=== PATIENT | female | born 1955 | race Caucasian/White ===

== ENCOUNTER 2022-01-14 20:02 | Inpatient (IN) | payer MEDICARE, OTHER ==
[~2022-01-14] VITALS: Ht 157.5 cm; Wt 83.5 kg
--- NOTE | 2022-01-14 21:18 | NUR ---
patient has been medically cleared by Dr Adame
--- NOTE | 2022-01-14 21:53 | NUR ---
Report given to Roma HOWARD.
--- NOTE | 2022-01-14 22:11 | NUR ---
Pt. admitted to MHU , under care of . Belongs List completed. Mar HOWARD aware of pts arrival.
[2022-01-14] MEDS ORDERED: MAG HYDROX/AL HYDROX/SIMETH 30 ML LIQUID UDC PO PRN (22:30)
[2022-01-14] MEDS ORDERED: BLOOD SUGAR DIAGNOSTIC 1 EACH STRIP VI ONE (22:30)
[2022-01-14] MEDS ORDERED: MAGNESIUM HYDROXIDE 30 ML LIQUID UDC PO PRN (22:30)
[2022-01-14] MEDS ORDERED: ACETAMINOPHEN 325 MG TABLET PO PRN (22:30)
[2022-01-14] MEDS ORDERED: ZOLPIDEM 5 MG TABLET PO PRN (22:30)
[2022-01-14 22:54] VITALS: BP 160/99
--- NOTE | 2022-01-14 23:45 | NUR ---
Admitted at approx 2210 A 66 years old female from [facility] ER to the MHU on a 5150 for GD. Pt was placed on a 5150 by [facility] behavioral health director. Per hold, patient has a long history of schizophrenia and has not been compliant with her medications for several months. Upon admission, patient was noted A/O x 3 able to ambulate with steady gait. Patient is easily irritable, hostile and angry. she has poor insight and judgment into her admission to MHU. She denied SI/HI/AH/VH. she refused to sign any admission papers and her skin assessment was limited d/t poor compliant. Per medical records, patient has a fracture of her right wrist. She denied pain at this time. Patient was advised of her hold and her advisement was given as well as her booklet of patient's rights in mental health facilities. patient was checked for contraband, all her belongings were inventoried and secured. she was informed of unit rules room and roommate. She is under the care of Dr. Ponce and Codie, GIORGIO. will continue with Q15 min checks.
--- NOTE | 2022-01-15 06:45 | NUR ---
Patient slept for approx. 5.30 hrs through the night. She was noted with tangental speech but less hostile less angry. Will endorse accordingly.
[2022-01-15 07:36] VITALS: BP 144/78
[2022-01-15] MEDS: risperiDONE 0.5 MG TABLET PO SCH ×2 (09:01→20:30)
--- NOTE | 2022-01-15 15:17 | NUR ---
Received patient awake in her room. A/O X 3 to person, place. Patient is cooperative with nursing care, compliant with medications, following directions, anxious at times, suspicious. Requires minimal assistance with ADL. Patient is encourage to verbalize concerns. Fall and safety precautions implemented.
[2022-01-15 16:00] VITALS: BP 146/64
[2022-01-15 20:37] VITALS: BP 146/68
--- NOTE | 2022-01-15 21:00 | NUR ---
RECEIVED PATIENT IN THE DAY ROOM. SHE IS NOTED A/O X3. SHE IS CALM AND PLEASANT UPON APPROACHED. SHE IS HYPERVERBAL AND APPEARS TO MINIMIZED HER CONDITION. SHE IS LESS INTRUSIVE AND LESS OPINIONATED. SHE WAS ABLE TO COMPLY WITH HER MEDICATION REGIMENT. HER V/S ARE STABLE. SHE WAS GIVEN PO FLUIDS AND SNACKS. SHE IS REASSURED FOR HER SAFETY. SAFETY AND FALL PRECAUTIONS ARE IN PLACE. WILL CONTINUE TO MONITOR.
[2022-01-16 07:35] VITALS: BP 151/69
[2022-01-16] MEDS: risperiDONE 1 MG TABLET PO SCH ×2 (08:31→20:12)
[2022-01-16] MEDS ORDERED: risperiDONE 0.5 MG TABLET PO SCH (09:00)
[2022-01-16 16:56] VITALS: BP 140/67
[2022-01-16 19:45] VITALS: BP 140/66
[2022-01-16] MEDS: LORAZEPAM 1 MG TABLET PO PRN ×2 (20:12→20:18)
--- NOTE | 2022-01-17 05:02 | NUR ---
Received patient in the falcon. Angry, paranoid and verbally abusive to this lyric writer. The patient made delusional statements and non reality based comments. Resistance was shown when it was time to take her PM medications. Sleep pattern is poor. The patient has a combative , threatening and aggressive demeanor. Poor verbal impulse control. Safety Stratiges are in place and limits have been set, with this patient, when it came to the frequent requests and demands. Continuing to monitor for behavior escalation and medication compliance.
[2022-01-17 07:44] VITALS: BP 152/69
[2022-01-17] MEDS: risperiDONE 1 MG TABLET PO SCH ×2 (08:10→20:18)
[2022-01-17 16:29] VITALS: BP 146/70
--- NOTE | 2022-01-17 16:39 | NUR ---
Received patient is alert and oriented x3, easily to get irritable when approach, suspicious argumentative when weapons designer psychiatrist attempted to talk to her.compliant with schedule medication . refused to attend in group activity delusional and paranoia, enjoyed drawing in her room no interaction with other peers.
[2022-01-17] MEDS: LORAZEPAM 1 MG TABLET PO PRN (20:22)
--- NOTE | 2022-01-17 20:23 | NUR ---
Patients paranoid this PM. The patient asked for Ativan, but refused the medication when presented to her. The medication had to be wasted. Same thing happened during previous bingo manager. Education and encouragement provided . The patient is argumentative, suspious and hostile. Safety Stratiges are in place. Monitoring for behavior escalation and compliance.
[2022-01-18 07:54] VITALS: BP 146/63
[2022-01-18] MEDS: risperiDONE 1 MG TABLET PO SCH ×2 (08:42→20:57)
[2022-01-18 16:03] VITALS: BP 146/68
[2022-01-18 20:18] VITALS: BP 133/75
--- NOTE | 2022-01-18 20:30 | NUR ---
RECEIVED PATIENT IN HER ROOM. SHE IS NOTED A/O X3. SHE IS CALM AND PLEASANT UPON APPROACHED. SHE IS ABLE TO VERBALIZED HER FEELING. HER V/S ARE STABLE. SHE WAS GIVEN PO FLUIDS AND SNACKS. SHE IS REASSURED FOR HER SAFETY. SAFETY AND FALL PRECAUTIONS ARE IN PLACE. WILL CONTINUE TO MONITOR.
[2022-01-19 08:08] VITALS: BP 138/79
[2022-01-19] MEDS: risperiDONE 1 MG TABLET PO SCH ×3 (08:41→21:03)
[2022-01-19] MEDS ORDERED: risperiDONE 1 MG TABLET PO SCH (09:00)
--- NOTE | 2022-01-19 10:09 | NUR ---
SAMMI Initial Discharge Note: Per SW completing pt assessment, patient is currently homeless. Patient receives services from [facility]. The director employee communications Pedro ([phone]) stated that she is working on placement at [facility]. Pedro ([phone]) stated she will be on contact regarding placement for the pt. SAMMI will continue to work with patient, family, and MD to ensure a safe and proper discharge plan.
--- NOTE | 2022-01-19 10:14 | NUR ---
Firearms Report: Sales Service Promoter completed and submitted a [employer] firearms report for 5150 grave disability certifications. A copy of report has been placed in patient chart.
--- NOTE | 2022-01-19 13:17 | NUR ---
Treatment Plan Patient refused to sign treatment plan due to disorganized thought process.
--- NOTE | 2022-01-19 15:00 | NUR ---
Received patient is alert and oriented x3, easily to get irritable when approach, hyperverbal suspicious ,compliant with schedule medication . refused to attend in group activity delusional and paranoia, will continue close monitoring.
[2022-01-19 16:11] VITALS: BP 130/68
[2022-01-19 21:25] VITALS: BP 149/72
--- NOTE | 2022-01-20 01:41 | NUR ---
RECEIVED PATIENT IN HER ROOM. SHE IS NOTED A/O X3. SHE IS CALM AND PLEASANT UPON APPROACHED. SHE IS NOTED SOMEWHAT INTRUSIVE AND ATTENTIONS SEEKER. SHE IS REDIRECTABLE AND ABLE TO VERBALIZED HER FEELING. HER V/S ARE STABLE. SHE WAS GIVEN PO FLUIDS AND SNACKS. SHE IS REASSURED FOR HER SAFETY. SAFETY AND FALL PRECAUTIONS ARE IN PLACE. WILL CONTINUE TO MONITOR.
[2022-01-20 07:30] VITALS: BP 154/73
[2022-01-20] MEDS: risperiDONE 1 MG TABLET PO SCH ×3 (08:34→20:47)
[2022-01-20] MEDS: LISINOPRIL 5 MG TABLET PO SCH (15:24)
--- NOTE | 2022-01-20 15:27 | NUR ---
Patient had a court hearing today, and the radiology ct technologist granted probable cause 14 day for GD only.
--- NOTE | 2022-01-20 15:45 | NUR ---
Received patient awake in the hallway. A/O X 3 to person, place, environment. Patient is cooperative with nursing care, pleasant, intrusive, irritable and anxious at times. Requires minimal assistance with ADL. Emotional support provided. Fall and safety precautions implemented.
[2022-01-20 15:56] VITALS: BP 167/87
--- NOTE | 2022-01-20 16:36 | NUR ---
SW Discharge Update: SW received call from Real Estate Lawyer Jesús Blanchard ([phone]) informing they have found placement at [facility] level 5 facility. Jesús explained pt needs temporary conservatorship in order to be placed at [facility] due to pt flight risk. Jesús faxed clinical notes for MD to review to consider signing affidavit for TCON.
[2022-01-20] MEDS: METFORMIN HCL 500 MG TABLET PO SCH (17:39)
[2022-01-20 20:02] VITALS: BP 133/68
--- NOTE | 2022-01-20 21:16 | NUR ---
GPS: Pt.is less paranoid and suspicious tonight. Med.compliant. Re-assured prn. No increased agitation noted. Safety emphasized. Will continue to monitor.
--- NOTE | 2022-01-21 06:18 | NUR ---
GPS: Pt.slept poorly last night (2.15). Refused sleeping pill when offered despite explanation of risks vs. benefits x3. Paranoid and accusing staff earlier of trying to hide her hat. Found hat under her bed. Re-directed prn. Safety emphasized.
[2022-01-21 07:30] VITALS: BP 117/54
[2022-01-21 08:05] LABS: HEMATOCRIT 36.4 % (31.2-41.9); MEAN CORPUSCULAR HEMOGLOBIN 28.5 uug (24.7-32.8); MEAN CORPUSCULAR VOLUME 86.1 fL (75.5-95.3); PLATELET COUNT (AUTO) 386 K/uL (179-408)
[2022-01-21 08:27] LABS: BILIRUBIN,TOTAL 0.4 mg/dL (0.2-1.0); CREATININE 0.7 mg/dL (0.6-1.3); POTASSIUM 4.1 mmol/L (3.5-5.1); TOTAL PROTEIN, SERUM 7.2 g/dL (6.4-8.2)
[2022-01-21] MEDS: METFORMIN HCL 500 MG TABLET PO SCH ×2 (08:51→17:29)
[2022-01-21] MEDS: risperiDONE 1 MG TABLET PO SCH ×3 (08:51→20:17)
[2022-01-21] MEDS: LISINOPRIL 5 MG TABLET PO SCH (08:51)
--- NOTE | 2022-01-21 14:41 | NUR ---
Received patient awake in the hallway. Patient is A/O X 3 to person, place. Patient is cooperative, intrusive about other patient's situation, labile, irritable at times. Patient spends time drawing and making Ras cards for all the staff. Patient is encourage to verbalize concerns. Fall and safety precautions implemented.
[2022-01-21 20:09] VITALS: BP 117/64
--- NOTE | 2022-01-22 02:41 | NUR ---
Received patient in the hallway standing by the wall with her back against the wall, belongings in hand. This blurb writer asked the patient for the reason as to why she had her belongings out with her in which the patient stated, "People are taking my stuff, so I have to watch it.". Patient is paranoid, anxious, and is reluctant to continue on her medication. When asked for the reasoning, patient stated, "I don't trust anyone here". 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 This blurb writer provided reassurance and active listening while at the same time, monitoring for behavior escalation. The patient can be intrusive with her physical presents and listens to conversations happening in the unit in regards to other patients. Safety strategies remain in place. Continuing to monitor for medication compliance and possible labile outbursts.
[2022-01-22 07:42] VITALS: BP_SYST 132; BP_SYST 143; BP_DIAS 66; BP_DIAS 80
[2022-01-22] MEDS: risperiDONE 1 MG TABLET PO SCH ×3 (09:27→20:49)
[2022-01-22] MEDS: LISINOPRIL 5 MG TABLET PO SCH (09:27)
[2022-01-22] MEDS: METFORMIN HCL 500 MG TABLET PO SCH ×2 (09:30→17:37)
--- NOTE | 2022-01-22 10:08 | NUR ---
SW Discharge Update: SW received call from College Archivist Jesús Blanchard (Desk: [phone]) and C: ([phone]) from [facility]. Jesús asked if Dr. Ponce can place the pt on TCON. This speech writer informed Jesús that per Dr. Ponce, he does not feel that the pt needs a TCON. Per Jesús, Dr. Ponce had already said "no" and she was checking if the answer still remains "no". Jesús was understanding and stated that the pt does not have a safe place for discharge without a TCON in [facility]. Jesús was agreeable for Dr. Ponce to make recommendations for a fpc facility in our community and also for Dr. Ponce to continue care for the pt if possible.
[2022-01-22 17:07] VITALS: BP 131/74
[2022-01-22 19:56] VITALS: BP 128/81
[2022-01-23 07:44] VITALS: BP 150/56
[2022-01-23] MEDS: risperiDONE 2 MG TABLET PO SCH ×2 (08:11→17:02)
[2022-01-23] MEDS ORDERED: OLANZAPINE 10 MG VIAL IM ONE (08:15)
[2022-01-23] MEDS ORDERED: risperiDONE 1 MG TABLET PO SCH (08:15)
--- NOTE | 2022-01-23 08:15 | NUR ---
Received zyprexa 10 mg IM order from psychiatrist , Im given to patient .
[2022-01-23] MEDS: METFORMIN HCL 500 MG TABLET PO SCH ×2 (08:53→17:02)
[2022-01-23] MEDS: LISINOPRIL 5 MG TABLET PO SCH (08:54)
[2022-01-23] MEDS ORDERED: PALIPERIDONE PALMITATE 234 MG/1.5 ML SYRINGE IM ONE (10:00)
[2022-01-23 17:01] VITALS: BP 154/64
--- NOTE | 2022-01-23 17:44 | NUR ---
patient is AAO x3, cooperative and quiet stay in TV room drawing and coloring , compliant with all medication,Invega IM given as ordered, patient well tolerated . denies any SI/HI will continue close monitoring.
[2022-01-23 19:58] VITALS: BP 122/68
--- NOTE | 2022-01-23 20:19 | NUR ---
GPS: Remains paranoid and suspicious. Evasive when questioned and easily irritable when approached by staff. Re-directed and re-assured prn. Safe environment provided. Will continue to monitor.
[2022-01-24 07:35] VITALS: BP 132/58
[2022-01-24] MEDS: METFORMIN HCL 500 MG TABLET PO SCH ×2 (08:08→17:03)
[2022-01-24] MEDS: risperiDONE 2 MG TABLET PO SCH ×2 (08:08→16:21)
[2022-01-24] MEDS: LISINOPRIL 5 MG TABLET PO SCH (08:09)
[2022-01-24] MEDS: GLUCERNA SHAKE 237 ML CAN PO SCH ×2 (13:10→17:03)
--- NOTE | 2022-01-24 15:14 | NUR ---
Received patient awake in the hallway. Patient is cooperative, fixated on Ras cards, sociable, compliant with medications, suspicious at times, intrusive about staff's interactions and conversations. Requires minimal assistance with ADL. Emotional support provided. Fall and safety precautions implemented.
[2022-01-24 16:03] VITALS: BP 129/62
[2022-01-24 19:45] VITALS: BP 129/74
--- NOTE | 2022-01-25 06:10 | NUR ---
Patient slept 5.30 hours, up and down frequently during the shift. The patient is suspious and paranoid. She carries most of her belongings around the unit with her in fear of the items getting stolen. Often times the patient will be standing in the falcon with her back against the wall, just listening to peoples conversations and internally preoccupied at times. No behavior escalation noted and she appears less angry than in prior shifts. Safety Stratiges are in place.
[2022-01-25 07:57] VITALS: BP 142/60
[2022-01-25] MEDS: METFORMIN HCL 500 MG TABLET PO SCH ×2 (08:28→16:28)
[2022-01-25] MEDS: risperiDONE 2 MG TABLET PO SCH ×2 (08:29→16:28)
[2022-01-25] MEDS: LISINOPRIL 5 MG TABLET PO SCH (08:33)
[2022-01-25] MEDS: GLUCERNA SHAKE 237 ML CAN PO SCH ×2 (08:34→16:29)
--- NOTE | 2022-01-25 15:16 | NUR ---
Received patient is alert and oriented x3, easily to get irritable when approach, guarded ,compliant with schedule medication . refused to attend in group activity delusional and paranoia, will continue close monitoring.
[2022-01-25 15:31] VITALS: BP 121/72
[2022-01-25 20:01] VITALS: BP 100/50
--- NOTE | 2022-01-26 04:39 | NUR ---
Patient is less intrusive and more compliant with POC than previous shift of this nurse/author. Will continue to monitor.
[2022-01-26 08:17] VITALS: BP 120/59
[2022-01-26] MEDS: METFORMIN HCL 500 MG TABLET PO SCH ×2 (08:36→17:52)
[2022-01-26] MEDS: risperiDONE 2 MG TABLET PO SCH ×2 (08:36→17:52)
[2022-01-26] MEDS: LISINOPRIL 5 MG TABLET PO SCH (08:37)
[2022-01-26] MEDS: GLUCERNA SHAKE 237 ML CAN PO SCH ×2 (08:48→17:53)
--- NOTE | 2022-01-26 14:54 | NUR ---
SAMMI Discharge Update: SAMMI received a voicemail from Meat Grinder Jesús Blanchard (Desk: [phone]) and C: ([phone]) from [facility] stating that she did not receive an email back from this casualty underwriter. SAMMI called Jesús today and left a voicemail stating that this casualty underwriter returned her email and asked for her fax number to fax the clinicals requested by Jesús. SAMMI also informed Jesús that this casualty underwriter answered her questions in the email as well. This casualty underwriter will contact Jesús again to follow-up.
--- NOTE | 2022-01-26 15:57 | NUR ---
SNF Referral: Flat Folder faxed patient's referral packet including: History and Physical, Consultation, Progress Notes, Medication List and Labs to the following facilities for review and possible senior living placement: Brianna Malave [facility] [address] [address] ([phone]) F: [phone].
[2022-01-26 16:01] VITALS: BP 111/62
[2022-01-26 19:35] VITALS: BP 115/55
--- NOTE | 2022-01-27 06:26 | NUR ---
GPS: Remain calm and cooperative with care. no agitation noted. resting in bed comfortably. slept 5.30 hrs through the night.. continue plan of care.
[2022-01-27 07:38] VITALS: BP 144/66
[2022-01-27] MEDS: risperiDONE 2 MG TABLET PO SCH ×2 (08:34→16:55)
[2022-01-27] MEDS: LISINOPRIL 5 MG TABLET PO SCH (08:34)
[2022-01-27] MEDS: GLUCERNA SHAKE 237 ML CAN PO SCH ×2 (08:35→16:57)
[2022-01-27] MEDS: METFORMIN HCL 500 MG TABLET PO SCH ×2 (08:35→17:00)
--- NOTE | 2022-01-27 11:18 | NUR ---
Clinical SW Note: Pt stated to this SW to not contact pt's or any family member. Pt asked to address all questions and concerns directly with the pt.
--- NOTE | 2022-01-27 15:42 | NUR ---
Received patient sleeping in her room. A/O X 2 to person, place. Patient is cooperative, needy, sociable, loose associations, compliant with medications. Requires minimal assistance with ADL. Patient is encourage to verbalize concerns. Fall and safety precautions implemented.
[2022-01-27 16:35] VITALS: BP 141/77
[2022-01-27 19:51] VITALS: BP 146/72
--- NOTE | 2022-01-28 06:10 | NUR ---
GPS: Remain calm and cooperative with care. no agitation noted. resting in bed comfortably. slept 4.30 hrs through the night.. continue plan of care.
[2022-01-28 07:45] VITALS: BP 133/60
[2022-01-28] MEDS: METFORMIN HCL 500 MG TABLET PO SCH ×2 (08:31→17:00)
[2022-01-28] MEDS: LISINOPRIL 5 MG TABLET PO SCH (08:31)
[2022-01-28] MEDS: risperiDONE 2 MG TABLET PO SCH ×2 (08:31→16:56)
[2022-01-28] MEDS: GLUCERNA SHAKE 237 ML CAN PO SCH ×2 (08:32→16:56)
--- NOTE | 2022-01-28 12:13 | NUR ---
SNF Referral: SW faxed patient's referral packet including: History and Physical, Consultation, Progress Notes, Medication List and Labs to the following facilities for review and possible long-term placement: [facility] [address] [address] ([phone]) F: ([phone]). SAMMI spoke with Priscilla in admissions.
--- NOTE | 2022-01-28 12:22 | NUR ---
Clinical SW Note: SW faxed patient's referral packet including: History and Physical, Consultation, Progress Notes, Medication List and Labs to the following facilities for review and possible shelter placement: Génesis Espinosa from [facility] per request P: [phone] F:[phone].
--- NOTE | 2022-01-28 15:20 | NUR ---
Patient is pleasant, friendly, cooperative with nursing care, compliant with medications, fixated on making Ras cards, paranoid about people stealing her hat. Patient is encourage to verbalize concerns. Fall and safety precautions.
[2022-01-28 16:04] VITALS: BP 139/70
[2022-01-28 20:22] VITALS: BP 104/51
--- NOTE | 2022-01-28 21:01 | NUR ---
GPS: Continues to be paranoid but re-directable. No increased agitation noted. Poor insight to her mental illness. Re-assured prn. Safety emphasized.
[2022-01-29 07:30] VITALS: BP 124/80
[2022-01-29] MEDS: METFORMIN HCL 500 MG TABLET PO SCH ×2 (08:16→17:00)
[2022-01-29] MEDS: LISINOPRIL 5 MG TABLET PO SCH (08:17)
[2022-01-29] MEDS: risperiDONE 2 MG TABLET PO SCH ×2 (08:18→16:59)
[2022-01-29] MEDS: GLUCERNA SHAKE 237 ML CAN PO SCH ×2 (08:18→16:59)
[2022-01-29] MEDS ORDERED: PALIPERIDONE PALMITATE 156 MG/ML SYRINGE IM ONE (14:00)
--- NOTE | 2022-01-29 14:22 | NUR ---
Clinical SW Note: SW contacted Newspaper Stuffer Jesús Blanchard (Desk: [phone]) and C: ([phone]) from [facility] and left a voicemail stating pt's discharge details for 01/30/[address] [facility] and provided contact information. SW will follow-up again on 01/30/22.
--- NOTE | 2022-01-29 15:04 | NUR ---
Received patient sleeping in her room. Patient is A/O X 3 to person, place. Patient is cooperative, compliant with medications, playful, sociable, suspicious and paranoid with some staff. Requires minimal assistance with ADL. Patient is given Invega 156 mg IM as scheduled, next dose due on February 24. Patient is excited to get discharged to SNF tomorrow. Patient is encourage to verbalize concerns. Fall and safety precautions implemented.
[2022-01-29 16:00] VITALS: BP 131/53
[2022-01-29 20:14] VITALS: BP 123/57
--- NOTE | 2022-01-29 20:50 | NUR ---
GPS: Pt.is less paranoid and suspicious tonight. Aware of her planned discharge tomorrow and is looking forward to it. Re-assured prn. No aggressive behavior noted.
[2022-01-30 07:30] VITALS: BP 119/61
[2022-01-30 08:46] VITALS: BP 119/61
[2022-01-30] MEDS: METFORMIN HCL 500 MG TABLET PO SCH (08:46)
[2022-01-30] MEDS: LISINOPRIL 5 MG TABLET PO SCH (08:46)
[2022-01-30] MEDS: risperiDONE 2 MG TABLET PO SCH (08:46)
[2022-01-30] MEDS: GLUCERNA SHAKE 237 ML CAN PO SCH (08:47)
--- NOTE | 2022-01-30 10:24 | NUR ---
SAMMI Discharge Note: Pt will be discharged to [facility] [address] [place] [address] ([phone]) via Ambulance transportation at 11AM. SAMMI spoke with admin, Priscilla at the facility who stated they are ready to accept the pt today. Pt is aware and agreeable with discharge plan. SAMMI contacted Pot Fireman Jesús Blanchard (Desk: [phone]) and C: ([phone]) from [facility] and left a voicemail stating pt's discharge details for 01/30/22. Pt is alert and oriented x4, is unable to plan for self-care at this time. Pt refused for this travel writer to contact any family. However, pt is willing to accept care at SNF. Pt denies any suicidal or homicidal ideation. Pt will follow-up at the facility with Psychiatrist, Dr. Purdy and Propulsion Machinery Service Engineer, Dr. Sneed. Pt presents with calm mood and congruent affect. PHARMACY: [facility] ([phone]) [address] [address].
--- NOTE | 2022-01-30 11:10 | NUR ---
Discharged to [facility] via Ambulance transportation at 11AM. Pt is alert and oriented x4, is unable to plan for self-care at this time. Pt refused for this machine sign writer to contact any family. However, pt is willing to accept care at SNF. Pt denies any suicidal or homicidal ideation. Pt will follow-up at the facility with Psychiatrist, Dr. Purdy and Airport Utility Worker, Dr. Sneed. all person belonging reeturned to patient,report given to Jamar HOWARD.
[2022-02-26] MEDS ORDERED: PALIPERIDONE PALMITATE 117 MG/0.75 ML SYRINGE IM ONE (09:00)
== END 2022-01-30 11:10 | DRG 885 ==
LOC: ER 20:08 → GPS 21:57
PROVIDERS: ADMIT Psychiatry & Neurology Psychiatry; ATTEND Nurse Practitioner Acute Care
DX: F20.0 Paranoid schizophrenia (principal); E11.9 Type 2 diabetes mellitus without complications; Z73.6 Limitation of activities due to disability; Z20.822 Contact with and (suspected) exposure to COVID-19; F60.9 Personality disorder, unspecified; F29 Unspecified psychosis not due to a substance or known physiological condition; Z59.00 Homelessness unspecified; G31.84 Mild cognitive impairment of uncertain or unknown etiology
CPT/HCPCS: 36415; 85025; A4663; J2358; J2426